=== PATIENT | female | born 1955 | race Caucasian/White ===

== ENCOUNTER 2020-04-16 07:38 | Day surgery (SDC) | payer MEDICARE, OTHER ==
[2020-04-13 15:20] LABS: CORONAVIRUS COVID-19 NAA NEGATIVE (NEGATIVE)
[~2020-04-16 07:38] MED LIST: Sodium Chloride 0.9% 10 ML Syringe FLUSH PRN
[2020-04-16] MEDS: Lactated Ringers 1,000 ML IV SCH (08:07)
[2020-04-16] MEDS ORDERED: Midazolam 1 MG/ML 2 ML SDV ONE ×2 (08:38→08:42)
[2020-04-16] MEDS ORDERED: Propofol 200 MG/20 ML SDV ONE ×2 (08:38→08:42)
--- NOTE | 2020-04-16 08:38 | PCM.PN ---
- General Info Date of Service: 04/16/20 - Review of Systems Systems Review Comment:: 64-year-old female referred for screening colonoscopy. She denies any recent change in bowel pattern or any significant rectal bleeding. She denies known family history of colon cancer. She is medically stable to proceed today. Her recent history and physical is reviewed and no significant changes are noted. I have discussed the proposed colonoscopy with the patient. Risks such as but not limited to bleeding and GI injury reviewed. She agrees to proceed. - Patient Data Vitals - Most Recent: Last Vital Signs Temp 98.3 F 04/16/20 08:09 Pulse 73 04/16/20 08:09 Resp 18 04/16/20 08:09 BP 114/62 04/16/20 08:09 Pulse Ox 99 04/16/20 08:09 Weight - Most Recent: 97.976 kg Med Orders - Current: Current Medications Lactated Ringer's (Ringers, Lactated) 1,000 mls @ 125 mls/hr IV ASDIRECTED MANDA Last Admin: 04/16/20 08:07 Dose: 125 mls/hr Documented by: Sodium Chloride (Saline Flush) 10 ml FLUSH ASDIRECTED PRN PRN Reason: Keep Vein Open Sepsis Event Note - Focused Exam Vital Signs: Vital Signs Temp Pulse Resp BP Pulse Ox 04/16/20 08:09 98.3 F 73 18 114/62 99 - Problem List Review Problem List Initiated/Reviewed/Updated: Yes - Assessment Assessment:: Colon cancer screening - Plan Plan:: Colonoscopy
--- NOTE | 2020-04-16 09:08 | PCM.OPNOTE ---
- General Post-Op/Procedure Note Date of Surgery/Procedure: 04/16/20 Operative Procedure(s): Colonoscopy Findings: Normal Colon Pre Op Diagnosis: Colon Cancer Screening Post-Op Diagnosis: Normal Colon Anesthesia Technique: MAC Primary Surgeon: Jamari Mtz Pathology: none EBL in mLs: 0 Complications: None Condition: Good
[2020-04-16 09:49] VITALS: BP 121/60; PULSE 56
--- NOTE | 2020-04-16 10:54 | OR ---
Date of Procedure: 04/16/2020 PREOPERATIVE DIAGNOSIS: Colon cancer screening. POSTOPERATIVE DIAGNOSIS: Normal colon. OPERATIONS PERFORMED: Colonoscopy. INDICATIONS FOR SURGERY: This 64-year-old female presents today for screening colonoscopy. She denies any recent change in bowel pattern. FINDINGS: The patient's colon appears normal. No polyps or other abnormalities were seen. DESCRIPTION OF PROCEDURE: The patient was taken to the operating room. She was given intravenous sedation, and with her in the left lateral decubitus position, digital rectal exam was performed showing no rectal masses. The Olympus colonoscope was inserted into the rectum. Retroflexed examination of the rectal canal was performed. The scope was then carefully advanced under direct visualization through the entire length of the colon until the cecum was reached. Cecal acquisition was confirmed by noting the normal internal cecal anatomy including the appendiceal orifice and the ileocecal valve. The light was also noted to transilluminate the abdominal wall in the right lower quadrant. After examining the cecum, the scope was slowly withdrawn sequentially re-examining the colonic segments until the entire colon and rectum had been fully examined. The scope was removed. The patient was taken from the operating room in satisfactory condition. ESTIMATED BLOOD LOSS: Zero. COMPLICATIONS: None. PROGNOSIS: Good. ANIBAL Mtz MD /[id number]
== END 2020-04-16 10:13 | disposition home or self-care (01) ==
LOC: LL.SDS 07:38
PROVIDERS: ATTEND Surgery
DX: Z12.11 Encounter for screening for malignant neoplasm of colon (principal); E78.5 Hyperlipidemia, unspecified; I10 Essential (primary) hypertension; Z98.890 Other specified postprocedural states; Z79.899 Other long term (current) drug therapy; Z88.8 Allergy status to other drugs, medicaments and biological substances; Z88.1 Allergy status to other antibiotic agents; Z87.891 Personal history of nicotine dependence; Z01.812 Encounter for preprocedural laboratory examination; Z20.828 Contact with and (suspected) exposure to other viral communicable diseases
CPT/HCPCS: 00812; J2250; J2704; J7120; U0002